=== PATIENT | female | born 2000 ===

== ENCOUNTER → 2023-04-18 14:06 | Outpatient (CLI) | payer OTHER, MEDICAID, SELFPAY ==
--- NOTE | 2023-04-18 | DI.US.S_ITS ---
PROCEDURE: US OB >= 14 WEEKS FETUS INDICATIONS: ANATOMY SCAN OUTSIDE/PRIOR DATING DATA: Last menstrual period (LMP): 09/22/2022. LMP-based estimated date of delivery (ERIKA): 06/29/2023. First dating scan (date and location): 04/18/2023. Estimated date of delivery (ERIKA) from first dating scan: 07/02/2023. TECHNIQUE: Real-time scanning was performed of the fetus, with image documentation and biometric measurements. Endovaginal scanning: Not performed COMPARISON: None. FINDINGS: General: A single living intrauterine gestation is present. Presentation: Vertex. Placenta: Placental position is anterior , without previa. Amniotic fluid index: 18.6 cm, normal range is 5-24 cm. Single deepest vertical pocket is 7.8 cm. heart rate: 157 beats per minute. Maternal cervical canal: 3.3 cm long. Normal lower limit is 2.5 cm. biometrics: Biparietal diameter: 7.3 centimeters 29 weeks 3 days Head circumference: 26.8 centimeters 29 weeks 2 days Abdominal circumference: 25.5 centimeters 29 weeks 5 days Femur length: 5.4 centimeters 28 weeks 5 days estimated gestational age: 29 weeks 5 days Composite gestational age from present scan: 29 weeks 2 days Estimated weight and percentile: 1369 grams, 24th percentile Anatomic survey: Neuro: Ventricles are non-dilated at less than 10 mm. Cisterna magna is normal at 3-11 mm. Cerebellum is normal in size and morphology. Nuchal skin fold: No definite thickening Face: Nose and lips, facial profile are normal. Spine: No evidence for spina bifida. Heart: 4-chambered heart is present, with normal ventricular outflow tracts. Diaphragm: Diaphragm is intact. Stomach: Left-sided stomach is present. Kidneys: No hydronephrosis. Normal is less than 5 mm in 2nd trimester, less than 7 mm in 3rd trimester. Cord: 3-vessel cord has orthotopic insertion. Bladder: Normal in size. Extremities: All 4 extremities identified. IMPRESSION: 1. Single living intrauterine in vertex presentation. 2. Normal 2nd trimester anatomy survey. No anatomic anomalies detected at this time. We strive to produce accurate, complete, and clear reports of imaging services. To assist us in improving patient care, this report was composed using standard report templates and voice recognition software. Therefore, it may contain abnormal punctuation, insertions and/or omissions. Occasional wrong-word or sound-alike substitutions may occur. Though we review the report and make efforts to correct it, we do recommend that the report be read carefully in proper context to recognize any text inaccuracies. Dictated by: Fredy Ryder M.D. on 04/18/2023 at 17:00 Approved by: Fredy Ryder M.D. on 04/18/2023 at 17:05
== END ==
PROVIDERS: Referring Provider Nurse Practitioner Obstetrics & Gynecology; Visit Provider Nurse Practitioner Obstetrics & Gynecology
DX: Z34.93 Encounter for supervision of normal pregnancy, unspecified, third trimester (principal); Z3A.29 29 weeks gestation of pregnancy
CPT/HCPCS: 76811